=== PATIENT | female | born 1995 | race African-American/Black ===

== ENCOUNTER 2024-07-26 09:50 | Outpatient (CLI) | payer OTHER, SELFPAY | END 2024-07-26 09:51 | disposition home or self-care (01) | LOC: ANHAUDIO 09:51 | PROVIDERS: PCP Otolaryngology; Visit Provider Otolaryngology | DX: H93.11 Tinnitus, right ear (principal); H90.41 Sensorineural hearing loss, unilateral, right ear, with unrestricted hearing on the contralateral side; H61.22 Impacted cerumen, left ear | CPT/HCPCS: 92557; 92567 ==